=== PATIENT | female | born 1960 | race Caucasian/White ===

== ENCOUNTER 2023-04-21 08:53 | Inpatient (IN) ==
[2023-04-21] MEDS ORDERED: Albuterol/Ipratropium NEB.SOL (2.5/0.5 MG) 3 ML NEB.SOLN INH ONE (09:00)
[2023-04-21 09:24] LABS: PO2 Arterial 161 mmHg (80-100)
[2023-04-21 09:32] LABS: PCO2 Arterial > 100 mmHg (35-45)
[2023-04-21] MEDS ORDERED: Rocuronium 50 mg VIAL 10 mg/ml 5 ml VIAL (50 mg) ONE (09:40)
[2023-04-21] MEDS ORDERED: Succinylcholine 200 mg VIAL 20 mg/ml 10 ml VIAL (200 mg) ONE ×2 (09:40→09:46)
[2023-04-21] MEDS ORDERED: Etomidate 40 mg/20 ml (2 MG/ML) 20 ml VIAL (40 mg) ONE (09:46)
[2023-04-21] MEDS ORDERED: Albuterol/Ipratropium NEB.SOL (2.5/0.5 MG) 3 ML NEB.SOLN ONE (09:55)
[2023-04-21] MEDS ORDERED: Lactated Ringers 1000 ml BAG 1,000 ML IV ONE (10:02)
[2023-04-21] MEDS ORDERED: Piperacillin/Tazobac ADVAN 3.375 GM in NS 0.9% 100 ml BAG 100 ML IV ONE ×2 (10:02→11:12)
[2023-04-21] MEDS ORDERED: Etomidate 20 mg/10 ml 2 MG/ML 10 ml VIAL IV ONE (10:03)
[2023-04-21] MEDS ORDERED: Succinylcholine 200 mg VIAL 20 mg/ml 10 ml VIAL (200 mg) IV ONE (10:03)
[2023-04-21] MEDS ORDERED: LORazepam 2 mg VIAL 1 ml ONE (10:16)
[2023-04-21] MEDS ORDERED: Lorazepam PYXIS KEY PRN (10:56)
[2023-04-21] MEDS ORDERED: LORazepam 2 mg VIAL 1 ml IV PUSH ONE (10:56)
[2023-04-21] MEDS: Propofol 10 mg/ml 100 ML BTL 1,000 MG/100 ML BTL IV SCH (11:00)
[2023-04-21] MEDS ORDERED: Zosyn per Pharmacy NOTE FOLLOW UP SCH (12:00)
[2023-04-21] MEDS: Enoxaparin 40 MG/0.4 ML SYR SUBCUT SCH (12:29)
[2023-04-21] MEDS: fentaNYL INFUSION 50 mcg/mL VL 2,500 MCG/50 ML VIAL IV SCH (12:29)
[2023-04-21 12:30] LABS: Urine Appearance Cloudy; Urine Bilirubin Negative (Negative); Urine Blood Negative (Negative); Urine Color Amber; Urine Glucose Negative (Negative); Urine Ketones Trace (Negative); Urine Nitrite Negative (Negative); Urine Protein 3+(>=500 mg/dL) (Negative); Urine Specific Gravity 1.025 (1.002-1.030); Urine Urobilinogen Positive (Negative)
[2023-04-21 12:34] LABS: Urine Amorphous Crystals Present (Absent); Urine Bacteria Absent (Absent); Urine Granular Casts Present (Absent); Urine Red Blood Cell Trace(0-2/hpf) (Absent); Urine Squamous Epithelial Cell Present (Absent); Urine White Blood Cell 2+(11-20/hpf) (Absent)
[2023-04-21] MEDS: Albuterol/Ipratropium NEB.SOL (2.5/0.5 MG) 3 ML NEB.SOLN INH SCH ×2 (12:46→19:16)
[2023-04-21 12:50] LABS: Alcohol, S < 13 mg/dL (<13)
[2023-04-21 12:58] LABS: Albumin 3.3 g/dL (3.2-5.2); Anion Gap 10 mmol/L (2-16); CO2 Carbon Dioxide 26 mmol/L (22-32); Calcium 8.3 mg/dL (8.6-10.3); Chloride 104 mmol/L (101-111); Potassium 4.6 mmol/L (3.5-5.0); Sodium 140 mmol/L (135-145)
[2023-04-21 13:04] LABS: ALT 31 U/L (7-52); AST 18 U/L (13-39); Albumin/Globulin Ratio 1.4 (1-3); Alkaline Phosphatase 113 U/L (35-149); Blood Urea Nitrogen 32 mg/dL (6-24); C Reactive Protein 117.07 mg/L (<8.01); Creatinine, Serum 1.74 mg/dL (0.51-0.95); Globulin 2.3 g/dL (2-4); Glucose 141 mg/dL (70-100); Lipase < 10 U/L (11.0-82.0); Phosphorus 5.5 mg/dL (2.5-5.0); Total Protein 5.6 g/dL (6.4-8.9); eGFR CKD-EPI 32.2 (>60)
[2023-04-21 13:21] LABS: ABS Basophils 0.1 10^3/uL (0.0-0.1); ABS Lymphocytes 0.6 10^3/uL (1.0-4.8); ABS Monocytes 0.4 10^3/uL (0.0-0.9); ABS Neutrophils 9.8 10^3/uL (1.5-7.6); ABS Nucleated RBC 0.01 10^3/ul; Hematocrit 30.2 % (35-45); Hemoglobin 10.1 g/dL (11.5-14.3); Lymphocyte % 5.3 %; Mean Corpuscular Hemoglobin 31.2 pg (27-33); Mean Corpuscular Hgb Conc 33.3 g/dL (31-36); Mean Corpuscular Volume 93.8 fL (80-97); Mean Platelet Volume 7.7 fL (7.5-11.2); Nucleated Red Blood Cells % 0.1 /100 WBC (0.0-0.4); Platelet Count 288 10^3/uL (150-450); Red Blood Count 3.22 10^6/uL (3.63-4.92); Red Cell Distribution Width 15.8 % (12-17); White Blood Count 10.9 10^3/uL (3.8-11.8)
[2023-04-21 13:26] LABS: INR 1.05 (0.88-1.18)
[2023-04-21 13:45] LABS: Resp Rate 18
[2023-04-21 13:47] LABS: PCO2 Arterial 63 mmHg (35-45)
[2023-04-21 14:42] LABS: PO2 Arterial 59 mmHg (80-100)
[2023-04-21 14:50] LABS: High Sensitivity Troponin 1 Hr 31 pg/mL (<15)
[2023-04-21] MEDS: ZOSYN 3.375 GM Q8H per EXTENDED INFUSION IV SCH ×2 (15:37→22:13)
[2023-04-21] MEDS: Chlorhexidine MOUTHWASH 0.12% 15 ML UDC SWISH SPIT SCH ×2 (18:14→21:06)
[2023-04-21] MEDS ORDERED: Albuterol 2.5mg/3 ml (0.083%) NEB.SOLN INH PRN (19:12)
[2023-04-21] MEDS ORDERED: cefTRIAXone 1 gm/50 mL D5W 1 GM/50 ML BAG IV SCH (19:15)
[2023-04-21] MEDS: DOXYcycline 100 MG in NS 0.9% 250 ml 250 ML IVPB SCH (20:51)
[2023-04-21] MEDS: methylPREDNISolone SOD SUCC 125 mg 2 ML VIAL IV SCH (20:52)
[2023-04-21] MEDS ORDERED: Norepinephrine 16MCG/ML BAGD5W 4,000 MCG/250 ML BAG IV SCH (21:00)
[2023-04-22] MEDS: Albuterol/Ipratropium NEB.SOL (2.5/0.5 MG) 3 ML NEB.SOLN INH SCH ×4 (02:20→19:18)
[2023-04-22] MEDS: methylPREDNISolone SOD SUCC 125 mg 2 ML VIAL IV SCH ×3 (03:22→20:36)
[2023-04-22] MEDS: Chlorhexidine MOUTHWASH 0.12% 15 ML UDC SWISH SPIT SCH ×6 (03:22→21:05)
[2023-04-22] MEDS: Propofol 10 mg/ml 100 ML BTL 1,000 MG/100 ML BTL IV SCH ×2 (03:33→18:19)
[2023-04-22 04:16] LABS: ABS Lymphocytes 0.4 10^3/uL (1.0-4.8); ABS Monocytes 0.1 10^3/uL (0.0-0.9); ABS Neutrophils 10.2 10^3/uL (1.5-7.6); Eosinophil % 0.1 %; Hematocrit 30.7 % (35-45); Hemoglobin 10.4 g/dL (11.5-14.3); Lymphocyte % 3.7 %; Mean Corpuscular Hemoglobin 31.5 pg (27-33); Mean Corpuscular Hgb Conc 33.8 g/dL (31-36); Mean Corpuscular Volume 93.2 fL (80-97); Mean Platelet Volume 7.5 fL (7.5-11.2); Platelet Count 347 10^3/uL (150-450); Red Blood Count 3.29 10^6/uL (3.63-4.92); Red Cell Distribution Width 15.6 % (12-17); White Blood Count 10.7 10^3/uL (3.8-11.8)
[2023-04-22 04:32] LABS: Albumin 2.9 g/dL (3.2-5.2); Albumin/Globulin Ratio 1.2 (1-3); Calcium 7.9 mg/dL (8.6-10.3); Creatinine, Serum 1.71 mg/dL (0.51-0.95); Globulin 2.4 g/dL (2-4); Total Bilirubin 0.5 mg/dL (0.2-1.0); Total Protein 5.3 g/dL (6.4-8.9); eGFR CKD-EPI 32.8 (>60)
[2023-04-22] MEDS ORDERED: Albuterol/Ipratropium NEB.SOL (2.5/0.5 MG) 3 ML NEB.SOLN INH SCH (07:00)
[2023-04-22] MEDS: DOXYcycline 100 MG in NS 0.9% 250 ml 250 ML IVPB SCH ×2 (08:17→20:35)
[2023-04-22] MEDS: ZOSYN 3.375 GM Q8H per EXTENDED INFUSION IV SCH ×3 (08:17→22:39)
[2023-04-22] MEDS: Norepinephrine 16MCG/ML BAGD5W 4,000 MCG/250 ML BAG IV SCH ×2 (11:32→12:39)
[2023-04-22] MEDS ORDERED: Furosemide 40 mg/4 ml IV VIAL IV ONE (11:36)
[2023-04-22] MEDS: Enoxaparin 40 MG/0.4 ML SYR SUBCUT SCH (12:26)
[2023-04-22] MEDS ORDERED: Furosemide 40 mg/4 ml IV VIAL IV SLOW PU ONE (20:00)
[2023-04-23] MEDS: Propofol 10 mg/ml 100 ML BTL 1,000 MG/100 ML BTL IV SCH ×2 (00:24→07:31)
[2023-04-23] MEDS: Albuterol/Ipratropium NEB.SOL (2.5/0.5 MG) 3 ML NEB.SOLN INH SCH ×4 (00:58→19:20)
[2023-04-23] MEDS: fentaNYL INFUSION 50 mcg/mL VL 2,500 MCG/50 ML VIAL IV SCH (01:31)
[2023-04-23] MEDS: Chlorhexidine MOUTHWASH 0.12% 15 ML UDC SWISH SPIT SCH ×4 (01:44→12:24)
[2023-04-23] MEDS: methylPREDNISolone SOD SUCC 125 mg 2 ML VIAL IV SCH ×3 (03:20→20:11)
[2023-04-23 05:45] LABS: ABS Basophils 0.1 10^3/uL (0.0-0.1); ABS Lymphocytes 0.3 10^3/uL (1.0-4.8); ABS Monocytes 0.1 10^3/uL (0.0-0.9); ABS Neutrophils 11.6 10^3/uL (1.5-7.6); Hematocrit 28.5 % (35-45); Hemoglobin 9.6 g/dL (11.5-14.3); Lymphocyte % 2.6 %; Mean Corpuscular Hemoglobin 31.4 pg (27-33); Mean Corpuscular Hgb Conc 33.6 g/dL (31-36); Mean Corpuscular Volume 93.5 fL (80-97); Mean Platelet Volume 7.8 fL (7.5-11.2); Platelet Count 297 10^3/uL (150-450); Red Blood Count 3.05 10^6/uL (3.63-4.92); White Blood Count 12.1 10^3/uL (3.8-11.8)
[2023-04-23 05:58] LABS: Calcium 7.4 mg/dL (8.6-10.3); Creatinine, Serum 1.64 mg/dL (0.51-0.95); Magnesium 1.9 mg/dL (1.9-2.7); Potassium 3.8 mmol/L (3.5-5.0); eGFR CKD-EPI 34.5 (>60)
[2023-04-23] MEDS ORDERED: Magnesium Sulfate IV 1GM/100ML 1 GM/100 ML BAG IV ONE (06:03)
[2023-04-23] MEDS: ZOSYN 3.375 GM Q8H per EXTENDED INFUSION IV SCH ×3 (07:01→22:51)
[2023-04-23] MEDS: DOXYcycline 100 MG in NS 0.9% 250 ml 250 ML IVPB SCH ×2 (07:26→20:12)
[2023-04-23] MEDS ORDERED: Furosemide 40 mg/4 ml IV VIAL IV SCH ×2 (09:00→11:00)
[2023-04-23] MEDS: KCL 20 MEQ/100 ML IVPREMIX 20 MEQ/100 ML BAG IV SCH ×2 (10:59→12:56)
[2023-04-23] MEDS: Enoxaparin 40 MG/0.4 ML SYR SUBCUT SCH (10:59)
[2023-04-23] MEDS ORDERED: Furosemide 40 mg/4 ml IV VIAL IV ONE (13:00)
[2023-04-23] MEDS: Benzocaine (plain) Lozenge 15 MG MT PRN ×2 (17:08→21:16)
[2023-04-23] MEDS: Acetaminophen IV 1 GM/100ML 1,000 MG/100 ML BAG IV PRN (19:15)
[2023-04-24] MEDS: Albuterol/Ipratropium NEB.SOL (2.5/0.5 MG) 3 ML NEB.SOLN INH SCH ×4 (01:12→19:20)
[2023-04-24] MEDS: methylPREDNISolone SOD SUCC 125 mg 2 ML VIAL IV SCH (03:48)
[2023-04-24] MEDS: Acetaminophen IV 1 GM/100ML 1,000 MG/100 ML BAG IV PRN ×2 (04:00→21:48)
[2023-04-24 04:49] LABS: Hematocrit 31.2 % (35-45); Hemoglobin 10.4 g/dL (11.5-14.3); Mean Corpuscular Hemoglobin 30.4 pg (27-33); Mean Corpuscular Hgb Conc 33.4 g/dL (31-36); Mean Corpuscular Volume 90.9 fL (80-97); Mean Platelet Volume 7.8 fL (7.5-11.2); Platelet Count 328 10^3/uL (150-450); Red Blood Count 3.43 10^6/uL (3.63-4.92); Red Cell Distribution Width 15.8 % (12-17); White Blood Count 15.7 10^3/uL (3.8-11.8)
[2023-04-24 05:05] LABS: Creatinine, Serum 1.36 mg/dL (0.51-0.95); Magnesium 1.7 mg/dL (1.9-2.7); Phosphorus 3.6 mg/dL (2.5-5.0); Potassium 3.2 mmol/L (3.5-5.0); eGFR CKD-EPI 43.2 (>60)
[2023-04-24] MEDS ORDERED: Magnesium Sulfate 2 gm BAG 2 GM/50 ML BAG IVPB ONE (06:07)
[2023-04-24] MEDS ORDERED: Potassium Chlor 20 meq TAB.ER PO ONE (06:07)
[2023-04-24] MEDS ORDERED: Magnesium Sulfate IV 3 GM in NS 0.9% 100 ml BAG 100 ML IVPB ONE (07:08)
[2023-04-24] MEDS: Potassium Chlor 20 meq TAB.ER PO ONE ×2 (07:27→09:29)
[2023-04-24] MEDS: ZOSYN 3.375 GM Q8H per EXTENDED INFUSION IV SCH (07:44)
[2023-04-24] MEDS: DOXYcycline 100 MG in NS 0.9% 250 ml 250 ML IVPB SCH ×2 (07:48→21:57)
[2023-04-24] MEDS ORDERED: methylPREDNISolone SOD SUCC 125 mg 2 ML VIAL IV SCH (10:00)
[2023-04-24] MEDS ORDERED: Furosemide 40 mg/4 ml IV VIAL IV ONE (10:06)
[2023-04-24] MEDS: Enoxaparin 40 MG/0.4 ML SYR SUBCUT SCH (10:29)
[2023-04-24] MEDS: methylPREDNISolone SOD SUCC 40 mg/ml 1 ml VIAL IV SCH ×2 (10:29→21:57)
[2023-04-24] MEDS: cefTRIAXone 2 gm/50 mL D5W 2 GM/50 ML BAG IV SCH (13:46)
[2023-04-24] MEDS: oxyCODONE/Acetamin 5/325 mg TAB PO PRN (17:27)
[2023-04-25] MEDS: oxyCODONE/Acetamin 5/325 mg TAB PO PRN ×3 (04:23→20:29)
[2023-04-25 06:49] LABS: Calcium 8.4 mg/dL (8.6-10.3); Creatinine, Serum 1.09 mg/dL (0.51-0.95); Potassium 3.9 mmol/L (3.5-5.0); eGFR CKD-EPI 56.4 (>60)
[2023-04-25] MEDS: Albuterol/Ipratropium NEB.SOL (2.5/0.5 MG) 3 ML NEB.SOLN INH SCH ×3 (07:00→20:08)
[2023-04-25] MEDS: methylPREDNISolone SOD SUCC 40 mg/ml 1 ml VIAL IV SCH ×2 (07:34→20:30)
[2023-04-25] MEDS: Benzocaine (plain) Lozenge 15 MG MT PRN (07:34)
[2023-04-25] MEDS: DOXYcycline 100 MG in NS 0.9% 250 ml 250 ML IVPB SCH ×2 (07:34→20:30)
[2023-04-25] MEDS: cefTRIAXone 2 gm/50 mL D5W 2 GM/50 ML BAG IV SCH (13:30)
[2023-04-25] MEDS: Enoxaparin 40 MG/0.4 ML SYR SUBCUT SCH (13:31)
[2023-04-26] MEDS: oxyCODONE/Acetamin 5/325 mg TAB PO PRN ×2 (03:36→13:17)
[2023-04-26] MEDS: Albuterol/Ipratropium NEB.SOL (2.5/0.5 MG) 3 ML NEB.SOLN INH SCH ×2 (07:19→13:04)
[2023-04-26] MEDS: methylPREDNISolone SOD SUCC 40 mg/ml 1 ml VIAL IV SCH (08:36)
[2023-04-26] MEDS: DOXYcycline 100 MG in NS 0.9% 250 ml 250 ML IVPB SCH (08:36)
[2023-04-26 08:53] LABS: ABS Lymphocytes 0.7 10^3/uL (1.0-4.8); ABS Monocytes 0.4 10^3/uL (0.0-0.9); ABS Neutrophils 8.1 10^3/uL (1.5-7.6); ABS Nucleated RBC 0.01 10^3/ul; Eosinophil % 0.1 %; Hematocrit 33.5 % (35-45); Hemoglobin 11.2 g/dL (11.5-14.3); Lymphocyte % 7.3 %; Mean Corpuscular Hgb Conc 33.4 g/dL (31-36); Mean Corpuscular Volume 92.7 fL (80-97); Mean Platelet Volume 7.7 fL (7.5-11.2); Nucleated Red Blood Cells % 0.1 /100 WBC (0.0-0.4); Platelet Count 343 10^3/uL (150-450); Red Blood Count 3.61 10^6/uL (3.63-4.92); Red Cell Distribution Width 15.8 % (12-17); White Blood Count 9.2 10^3/uL (3.8-11.8)
[2023-04-26 09:11] LABS: Calcium 8.4 mg/dL (8.6-10.3); Creatinine, Serum 0.81 mg/dL (0.51-0.95); Magnesium 1.8 mg/dL (1.9-2.7); eGFR CKD-EPI 80.5 (>60)
[2023-04-26] MEDS ORDERED: Magnesium Sulfate 2 gm BAG 2 GM/50 ML BAG IVPB ONE (09:45)
[2023-04-26] MEDS: Enoxaparin 40 MG/0.4 ML SYR SUBCUT SCH (12:03)
[2023-04-26] MEDS: cefTRIAXone 2 gm/50 mL D5W 2 GM/50 ML BAG IV SCH (13:18)
[2023-04-26 13:40] VITALS: BP 154/88
[2023-05-01 14:39] LABS: Amphetamines Screen Blood None Detected; Cocaine Metabolites Screen Bl None Detected; Fentanyl/Acetyl FentanylScreen None Detected; Methadone Metabolites Scrn Bl None Detected; Methamphetamines/MDMA Screen None Detected; Opiates Screen Blood None Detected; Oxycodone/Oxymorphone Scrn Bl None Detected; Phencyclidine Screen Blood None Detected
[2023-05-01 14:52] LABS: 11-Hydroxy Delta-9 THC 1.7 ng/mL; Delta-9 Carboxy THC 33 ng/mL; Delta-9 THC 1.1 ng/mL
== END 2023-04-26 16:05 | disposition home or self-care (01) | DRG 208 ==
LOC: ED 08:53 → SUATTDRO 10:11 → EDHOLD 10:11 → ICU 11:30 → MED 12:43
PROVIDERS: ADMIT Internal Medicine Critical Care Medicine; ATTEND Internal Medicine

== ENCOUNTER 2024-08-18 11:12 | Observation (INO) ==
[2024-08-18] MEDS: Albuterol/Ipratropium NEB.SOL (2.5/0.5 MG) 3 ML NEB.SOLN INH ONE ×2 (11:49→13:05)
[2024-08-18 12:47] LABS: ABS Basophils 0.1 10^3/uL (0.0-0.1); ABS Eosinophils 0.1 10^3/uL (0.0-0.5); ABS Lymphocytes 0.7 10^3/uL (1.0-4.8); ABS Monocytes 0.2 10^3/uL (0.0-0.9); ABS Neutrophils 7.5 10^3/uL (1.5-7.6); ABS Nucleated RBC 0.01 10^3/ul; Eosinophil % 0.9 %; Hematocrit 43.5 % (35-45); Hemoglobin 14.1 g/dL (11.5-14.3); Lymphocyte % 7.9 %; Mean Corpuscular Hemoglobin 29.8 pg (27-33); Mean Corpuscular Hgb Conc 32.4 g/dL (31-36); Mean Corpuscular Volume 91.8 fL (80-97); Mean Platelet Volume 8.6 fL (7.5-11.2); Nucleated Red Blood Cells % 0.2 %/100WBC (0.0-0.8); Platelet Count 329 10^3/uL (150-450); Red Blood Count 4.74 10^6/uL (3.63-4.92); Red Cell Distribution Width 16.8 % (12-17); Venous Bicarbonate HCO3 26.4 mmol/L (24-28); White Blood Count 8.5 10^3/uL (3.8-11.8)
[2024-08-18 13:12] LABS: High Sens Troponin Baseline 9 pg/mL (<15)
[2024-08-18 13:15] LABS: ALT 19 U/L (7-52); Albumin 4.3 g/dL (3.2-5.2); Albumin/Globulin Ratio 1.6 (1-3); Alkaline Phosphatase 104 U/L (35-149); Anion Gap 6 mmol/L (2-16); Blood Urea Nitrogen 18 mg/dL (6-24); C Reactive Protein 17.78 mg/L (<8.01); CO2 Carbon Dioxide 28 mmol/L (22-32); Calcium 9.3 mg/dL (8.6-10.3); Chloride 104 mmol/L (101-111); Globulin 2.7 g/dL (2-4); Glucose 119 mg/dL (70-100); Magnesium 1.9 mg/dL (1.9-2.7); Sodium 138 mmol/L (135-145); Total Bilirubin 0.5 mg/dL (0.2-1.0); eGFR CKD-EPI 62.1 (>60)
[2024-08-18 15:05] LABS: Potassium Redraw 4.7 mmol/L (3.5-5.0)
[2024-08-18] MEDS ORDERED: Al Hydrox/Mg Hydrox/Simet LIQ 30 ML UDC PO PRN (17:57)
[2024-08-18] MEDS ORDERED: Polyethylene Glycol 3350 17 GM PACKET PO PRN (17:57)
[2024-08-18] MEDS: methylPREDNISolone SOD SUCC 40 mg/ml 1 ml VIAL IV SCH (19:22)
[2024-08-18] MEDS: Enoxaparin 40 MG/0.4 ML SYR SUBCUT SCH (19:24)
[2024-08-18] MEDS: Albuterol/Ipratropium NEB.SOL (2.5/0.5 MG) 3 ML NEB.SOLN INH SCH (19:30)
[2024-08-19] MEDS ORDERED: Umeclidinium 62.5 MDI(NF) MDI INH SCH (09:00)
[2024-08-19 10:34] VITALS: BP 111/58
== END 2024-08-19 13:29 | disposition home or self-care (01) ==
LOC: EDHOLD 11:12 → ED 11:12 → MEDTELE 20:30
PROVIDERS: ADMIT Internal Medicine; ATTEND Internal Medicine